=== PATIENT | male | born 1985 | race Caucasian/White ===

== ENCOUNTER 2019-05-04 19:19 | Emergency (ER) | payer OTHER ==
[2019-05-04 19:22] VITALS: BP 172/93; PULSE 84; TEMP 98.3; BMI 29.0
--- NOTE | 2019-05-04 19:50 | PDOC ---
History of Present Illness - General Chief Complaint: Lightheaded Stated Complaint: CHEST PAIN Time Seen by Provider: 05/04/19 19:33 History Source: Patient Exam Limitations: No Limitations - History of Present Illness Initial Comments: 05/04/19 19:41 HISTORY OF PRESENT ILLNESS: 34-year-old male past medical history of depression presents emergency department for evaluation of 2 to 3 days of cough shortness of breath and intermittent dizziness. He denies fevers and chills. Patient reports intermittent chest tightness but not presently. No recent travel or sick contacts. PAST MEDICAL HISTORY: Depression SURGICAL HISTORY: Denies ALLERGIES: PCN REVIEW OF SYSTEMS General/Constitutional: Denies fever or chills. Denies weakness, weight change. HEENT: Denies change in vision. Denies ear pain or discharge. Denies sore throat. Cardiovascular: See HPI Respiratory: See HPI Gastrointestinal: Denies nausea, vomiting, diarrhea or constipation. Denies rectal bleeding. Genitourinary: Denies dysuria, frequency, or change in urination. Musculoskeletal: Denies joint or muscle swelling or pain. Denies neck or back pain. Skin and breasts: Denies rash or easy bruising. Neurologic: Denies headache, vertigo, loss of consciousness, or loss of sensation. Psychiatric: Denies depression or anxiety. Endocrine: Denies increased thirst. Denies abnormal weight change. Hematologic/Lymphatic: Denies anemia, easy bleeding, or history of blood clots. Allergic/Immunologic: Denies hives or skin allergy. Denies latex allergy. PHYSICAL EXAM General Appearance: Well-appearing, appropriately dressed. No apparent distress, no intoxication. HEENT: EOMI, PERRLA, normal ENT inspection, normal voice, TMs normal, pharynx normal. No conjunctival pallor. No photophobia, scleral icterus. Neck: Supple. Trachea midline. No tenderness, rigidity, carotid bruit, stridor, lymphadenopathy, or thyromegaly. Respiratory/Chest: Lungs CTAB. No shortness of breath, chest tenderness, respiratory distress, accessory muscle use. No crackles, rales, rhonchi, stridor, wheezing, dullness Cardiovascular: RRR. S1, S2. No JVD, murmur, bradycardia, tachycardia. Vascular Pulses: Dorsalis-Pedis (R): 2+, Dorsalis-Pedis (L): 2+ Gastrointestinal/Abdominal: Normal bowel sounds. Abdomen soft, non-distended. No tenderness or rebound tenderness. No organomegaly, pulsatile mass, guarding, hernia, hepatomegaly, splenomegaly. Lymphatic: No adenopathy, tenderness. Musculoskeletal/Extremities: Normal inspection. FROM of all extremities, normal capillary refill. Pelvis Stable. No CVA tenderness. No tenderness to extremities, pedal edema, swelling, erythema or deformity. Integumentary: Appropriate color, dry, warm. No cyanosis, erythema, jaundice or rash Neurologic: rug hooker II-XII intact. Fully oriented, alert. Appropriate mood/affect. Motor strength 5/5. No appreciable EOM palsy, facial droop or sensory deficit. Past History - Past Medical History Allergies/Adverse Reactions: Allergies Allergy/AdvReac Type Severity Reaction Status Date / Time No Known Allergies Allergy Verified 05/04/19 19:22 COPD: No Psychiatric Problems: Yes (on wellbutrin) - Psycho Social/Smoking Cessation Hx Smoking History: Never smoked *Physical Exam - Vital Signs Last Vital Signs Temp Pulse Resp BP Pulse Ox 98.3 F 84 18 172/93 H 100 05/04/19 19:20 05/04/19 19:20 05/04/19 19:20 05/04/19 19:20 05/04/19 19:20 Heart Score/ECG Review - History History: Slightly suspicious - Electrocardiogram EKG: Normal - Age Age: </= 45 - Risk Factors Based on the list above the patient has:: No risk factors known - Troponin Troponin: </= normal limit - Score Heart Score - Total: 0 ED Treatment Course - LABORATORY CBC & Chemistry Diagram: 05/04/19 19:40 05/04/19 19:40 - RADIOLOGY Radiology Studies Ordered: Category Date Time Status CHEST X-RAY PORTABLE* [RAD] Stat Radiology 05/04/19 19:40 Ordered Medical Decision Making - Medical Decision Making 05/04/19 19:50 A/P: 34-year-old male intermittent dry cough and intermittent shortness of breath over the past 2 or 3 days Physical exam is unremarkable Differential diagnosis includes but is not limited to-Covid-19, ACS, pneumonia, anxiety Unlikely ACS given patient's age and lack of history but I will get labs including cardiac profile and EKG with one negative troponin being reassuring that it is not cardiac related. Chest x[place]ray [place]assess[place] [facility] [place]/04/[place] 20:30 Chest x-ray as read by Dr. Michel: No acute pulmonary process is noted. EKG sinus rhythm with rate of 77. Normal intervals present with a QTC 398 ms. No ischemic changes present. 05/04/19 20:35 Laboratory Tests 05/04/19 05/04/19 19:40 19:40 WBC 9.7 RBC 5.12 Hgb 15.7 Hct 46.9 MCV 91.6 MCH 30.7 MCHC 33.5 RDW 13.5 Plt Count 290 MPV 9.9 Absolute Neuts (auto) 6.7 Neutrophils % 68.9 Lymphocytes % 21.7 Monocytes % 8.0 Eosinophils % 0.9 Basophils % 0.5 Nucleated RBC % 0 Sodium 137 Potassium 4.3 Chloride 104 Carbon Dioxide 26 Anion Gap 8 BUN 8.4 Creatinine 1.1 Est GFR (CKD-EPI)AfAm 100.27 Est GFR (CKD-EPI)NonAf 86.51 Random Glucose 88 Calcium 9.0 Magnesium 2.2 Total Bilirubin 0.3 AST 15 ALT 48 Alkaline Phosphatase 48 Creatine Kinase 185 Troponin I < 0.02 Total Protein 7.5 Albumin 4.3 Given normal EKG, chest x-ray and laboratory testing I feel it is safe to discharge home to follow-up with his primary doctor as needed. Patient remains asymptomatic. I discussed the physical exam findings, ancillary test results and final diagnoses with the patient. I answered all of the patient's questions. The patient was satisfied with the care received and felt comfortable with the discharge plan and treatment plan. The patient will call their primary care physician within 24 hours to arrange follow-up and will return to the Emergency Department with any new, persistent or worsening symptoms. Portions of this note have been documented using voice recognition software. As a result, errors may occur in the cone operator process. Effort has been made to correct all grammatical and cone operator error, but some may have been missed which may produce sporadic inaccurate cone operator or nonsensical phrases. Discharge - Discharge Information Problems reviewed: Yes Clinical Impression/Diagnosis: SOB (shortness of breath) Condition: Stable Disposition: HOME - Admission No - Follow up/Referral - Patient Discharge Instructions Additional Instructions: Drink 2-3 L of water daily Take Tylenol 650 mg every 4 hours for fever and pain Return to the nearest ER if short of breath, unable to swallow or feeling sicker Followup with your doctor in one to 2 days Covid-19 Symptoms and Knowing When to Stay Home and Return to Work The following is the most recent guidance from our Infection Prevention and Control team on the symptoms and duration of Covid-19, along with when to stay home from work, when you may return, and what procedures to follow when you are ready to come back. PLease call [facility] : [facility] CORONAVIRUS HOTLINE: What are the most common symptoms of Covid-19? - Muscle aches - Loss of energy and appetite - Persistent cough - Low grade fever lasting 24 hours or more, causing the person to feel feverish with chills If I have Covid-19, how long can I expect to feel sick? - Typically one week. - The majority of individuals feel better in 5 to 7 days with rest and [id number] cold and flu medications. How does illness progress in cases of Covid-19? - A few individuals progress to pneumonia (infection of the lungs) and/or pneumonitis (inflammation of the lungs). - Pneumonia/pneumonitis causes shortness of breath, worsening cough and in most cases, fever. - Individuals with the symptoms of Covid-19 who develop a worsening cough and shortness of breath must seek care quickly. If Im concerned about my symptoms or feel unwell, when must I stay home from work/ school? If you have muscle aches, cough, fatigue and low-grade fever, do not go to work/ school - Post Discharge Activity Work/Back to School Note: Back to Work
[2019-05-04 20:00] LABS: BASO % 0.5 % (0-2.0); EOS % 0.9 % (0-4.5); HEMATOCRIT 46.9 % (35.4-49); HEMOGLOBIN 15.7 GM/dL (11.7-16.9); LYMPH % 21.7 % (8-40); MCH 30.7 pg (25.7-33.7); MCHC 33.5 g/dl (32.0-35.9); MEAN CELL VOLUME 91.6 fl (80-96); MEAN PLT VOLUME 9.9 fl (7.5-11.1); NEUT % 68.9 % (42.8-82.8); PLATELET COUNT 290 K/MM3 (134-434); RBC 5.12 M/mm3 (4.00-5.60); RDW 13.5 % (11.9-15.9); WHITE BLOOD COUNT 9.7 K/mm3 (4.0-10.0)
[2019-05-04 20:32] LABS: ALBUMIN 4.3 g/dl (3.4-5.0); ALK PHOS 48 U/L (45-117); ANION GAP 8 MMOL/L (8-16); BILIRUBIN,TOTAL 0.3 mg/dL (0.2-1); BLOOD UREA NITROGEN 8.4 mg/dL (7-18); CHLORIDE 104 mmol/L (98-107); CO2 26 mmol/L (21-32); CREATININE 1.1 mg/dL (0.55-1.3); GLUCOSE,RANDOM 88 mg/dL (74-106); MAGNESIUM 2.2 mg/dL (1.8-2.4); POTASSIUM 4.3 mmol/L (3.5-5.1); SGOT/AST 15 U/L (15-37); SGPT/ALT 48 U/L (13-61); SODIUM 137 mmol/L (136-145); TOT PROT 7.5 g/dl (6.4-8.2)
--- NOTE | 2019-05-05 10:14 | EKG ---
Test Reason : Blood Pressure : / mmHG Vent. Rate : 077 BPM Atrial Rate : 077 BPM P-R Int : 124 ms QRS Dur : 078 ms QT Int : 352 ms P-R-T Axes : -01 031 028 degrees QTc Int : 398 ms NORMAL SINUS RHYTHM Normal ECG NO PREVIOUS ECGS AVAILABLE Confirmed by Ora Joseph ([id number]) on 05/05/2019 10:14:12 AM Referred By: Confirmed By:Ora Joseph
== END 2019-05-04 20:44 | disposition home or self-care (01) ==
LOC: JERFT 19:19
DX: R06.02 Shortness of breath (principal); F32.9 Major depressive disorder, single episode, unspecified
CPT/HCPCS: 36415; 71045-TC-FY; 80053; 82550; 82553; 83735; 84484; 85025; 93005; 93010; 99285-25